=== PATIENT | male | born 1975 | race Caucasian/White ===

== ENCOUNTER 2019-04-29 09:07 | Outpatient (CLI) | payer SELFPAY ==
[2014-03-08 21:32] VITALS: BP 120/68
[2019-04-29 09:39] LABS: HDL 45 mg/dL (>40); eGFR (Non-African) > 60
== END 2019-04-29 09:12 ==
LOC: LAB 09:07
PROVIDERS: ATTEND Family Medicine
DX: E11.9 Type 2 diabetes mellitus without complications (principal)
CPT/HCPCS: 80053; 80061; 82043; 82570; 85027